=== PATIENT | male | born 1970 | race Caucasian/White ===

== ENCOUNTER → 2016-12-03 | Outpatient (CLI) | payer OTHER, BC ==
--- NOTE | 2016-12-04 09:04 | XR ---
Right ankle HISTORY: Pain 3 views of the right ankle correlated to right foot same date There is soft tissue swelling present. Cortical thickening present at the distal fibular diaphysis ma y be due to remote trauma. Small ossific densities distal to the fibula and medial malleolus are well -corticated and not felt likely to be acute. Some soft tissue calcifications present lateral to the f oot may be related to patient's gout. There is enthesophyte at the insertion of the Achilles tendon. Small plantar calcaneal spur noted. Some degenerative changes are present at the intertarsal joints. IMPRESSION: Soft tissue swelling, soft tissue calcifications as described. Additional findings above.
--- NOTE | 2016-12-04 09:06 | XR ---
Right foot HISTORY: Gout, pain 3 views of the right foot correlated to right ankle same date Soft tissue calcifications are present lateral to the foot. There is marginal spurring, overhanging e dge especially at the tarsometatarsal joint of the first digit, degenerative change also present at t he metatarsophalangeal joint of the first digit. Mild hallux valgus deformity. There is a small plant ar calcaneal spur. Some hypertrophic change present at the metatarsophalangeal joints of the second a nd third digits. Enthesophyte present at the insertion of the Achilles tendon. Small ossific density distal to the medial malleolus is well-corticated and may be due to remote trauma. IMPRESSION: Findings compatible with gout, osteoarthritis.
== END | disposition home or self-care (01) ==
LOC: RADXRYALE 09:24
PROVIDERS: ATTEND Internal Medicine
DX: M79.89 Other specified soft tissue disorders (principal)

== ENCOUNTER → 2017-09-17 | Outpatient (CLI) | payer BC ==
--- NOTE | 2017-09-17 09:02 | XR ---
EXAMINATION TYPE: XR KUB DATE OF EXAM: 09/17/2017 COMPARISON: NONE HISTORY: Bilateral renal stones and hematuria TECHNIQUE: One view abdominal series FINDINGS: The osseous structures are intact. The bowel gas pattern is nonspecific. Right kidney: There is a 9 mm irregular calcification in the region of the right UPJ or proximal uret er adjacent to the L3-L4 disc space. Also, suspect a 1 mm punctate lower pole calcification. Left kidney: Overlying the 12th rib there suspicion for 4-5 calcifications which correspond to the mi d pole of the left kidney with the largest measuring a transverse diameter of 3 mm. Pelvis: Tiny punctate calcification within the right hemipelvis likely vascular. Arthropathy of the h ips noted. IMPRESSION: 1. Bilateral nephrolithiasis as measured discussed above with the largest seen involving the proximal right ureter noted measuring 9 mm.
== END ==
LOC: RADXRMAIN 07:52
PROVIDERS: ATTEND Urology
DX: N20.2 Calculus of kidney with calculus of ureter (principal)
CPT/HCPCS: 74000

== ENCOUNTER → 2019-02-14 | Outpatient (CLI) | payer BC ==
[2019-02-14 08:25] LABS: Basophils # (A) 0.1 k/uL (0-0.2); Basophils % (A) 1 %; Eosinophils # (A) 0.2 k/uL (0-0.7); Eosinophils % (A) 3 %; HCT 43.1 % (39.0-53.0); HGB 14.9 gm/dL (13.0-17.5); Lymphocytes # (A) 1.5 k/uL (1.0-4.8); Lymphocytes % (A) 23 %; MCH 27.7 pg (25.0-35.0); MCHC 34.5 g/dL (31.0-37.0); MCV 80.2 fL (80.0-100.0); Mean Platelet Volume 6.1; Monocytes # (A) 0.5 k/uL (0-1.0); Monocytes % (A) 8 %; Neutrophils % (A) 61 %; Platelet Count 230 k/uL (150-450); RBC 5.37 m/uL (4.30-5.90); RDW 13.2 % (11.5-15.5); WBC 6.5 k/uL (3.8-10.6)
[2019-02-14 17:02] LABS: ALT 33 U/L (10-49); AST 23 U/L (14-35); Albumin/Globulin Ratio 1.68 (1.60-3.17); Alkaline Phosphatase 70 U/L (41-126); Calcium 8.9 mg/dL (8.7-10.3); Carbon Dioxide 27.2 mmol/L (21.6-31.8); Chloride 108 mmol/L (96-109); Cholesterol 197 mg/dL (0-200); Globulin 2.5 g/dL (1.6-3.3); Glucose 162 mg/dL (70-110); Sodium 140 mmol/L (135-145); Total Bilirubin 0.6 mg/dL (0.2-1.2); Total Protein 6.7 g/dL (6.2-8.2)
[2019-02-14 18:22] LABS: Hemoglobin A1C 6.7 % (4.0-6.0)
== END | disposition home or self-care (01) ==
LOC: LABWHC1 08:05
PROVIDERS: ATTEND Family Medicine
DX: Z00.00 Encounter for general adult medical examination without abnormal findings (principal)
CPT/HCPCS: 36415; 80053; 80061; 83036; 83721; 84443; 85025

== ENCOUNTER 2019-10-14 13:51 | Emergency (ER) | payer BC ==
[2019-10-14 14:01] VITALS: BP 112/70; PULSE 118; TEMP 100.2
[2019-10-14 14:17] VITALS: RESP 20
--- NOTE | 2019-10-14 14:25 | ED ---
Fever HPI - General Chief Complaint: Fever Stated Complaint: Cough Source: patient Mode of arrival: ambulatory Limitations: no limitations - History of Present Illness Initial Comments: Patient is a 49-year-old male presenting to emergency Department with chief complaint of fever and body aches. Patient reports symptoms began yesterday after he was coming back from work. 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 Patient reports a nonproductive cough, sore throat, mild bilateral otalgia and sinus congestion. Patient reports a fever at home. Patient reports taking [id number]-[id number] analgesia with some improvement. Denies taking a flu shot this year. Denies any vomiting abdominal pain, back pain chest pain or shortness of breath. - Related Data Home Medications Medication Instructions Recorded Confirmed Aspirin EC [Ecotrin] 325 mg PO DAILY PRN 01/16/16 01/16/16 Famotidine [Pepcid AC] 10 mg PO DAILY 01/16/16 01/16/16 Ibuprofen [Motrin] 800 mg PO Q6H PRN 01/16/16 01/16/16 Indomethacin [Indocin ER] 75 mg PO DAILY PRN 01/16/16 01/16/16 Previous Rx's Medication Instructions Recorded Ondansetron [Zofran ODT] 4 mg PO Q8HR PRN #9 tab 01/16/16 Oseltamivir [Tamiflu] 75 mg PO Q12HR #10 cap 10/14/19 methylPREDNISolone [Medrol Dose 4 mg PO DIRECTED #1 pack 10/14/19 Pack] Allergies Allergy/AdvReac Type Severity Reaction Status Date / Time acetaminophen Allergy Nausea & Verified 10/14/19 14:01 [From Darvocet-N] Vomiting & Diarrhea propoxyphene napsylate Allergy Nausea & Verified 10/14/19 14:01 [From Darvocet-N] Vomiting & Diarrhea Review of Systems ROS Statement: Those systems with pertinent positive or pertinent negative responses have been documented in the HPI. ROS Other: All systems not noted in ROS Statement are negative. Past Medical History Additional Past Medical History / Comment(s): kidney stones History of Any Multi-Drug Resistant Organisms: None Reported Past Surgical History: No Surgical Hx Reported, Orthopedic Surgery Additional Past Surgical History / Comment(s): lithotripsy carmen feet Past Psychological History: No Psychological Hx Reported Smoking Status: Never smoker Past Alcohol Use History: None Reported Past Drug Use History: None Reported General Exam Limitations: no limitations General appearance: alert, in no apparent distress Head exam: Present: atraumatic, normocephalic, normal inspection Eye exam: Present: normal appearance, PERRL, EOMI Pupils: Present: normal accommodation ENT exam: Present: normal exam, normal oropharynx, mucous membranes moist, TM's normal bilaterally, normal external ear exam Neck exam: Present: normal inspection, full ROM Respiratory exam: Present: normal lung sounds bilaterally. Absent: respiratory distress, wheezes Cardiovascular Exam: Present: normal rhythm, tachycardia, normal heart sounds Extremities exam: Present: normal inspection, full ROM Back exam: Present: normal inspection, full ROM Neurological exam: Present: alert, oriented X3 Psychiatric exam: Present: normal affect, normal mood Skin exam: Present: warm, dry, intact, normal color Course Vital Signs 10/14/19 10/14/19 13:57 14:12 Temperature 100.2 F H Pulse Rate 118 H Respiratory 18 20 Rate Blood Pressure 112/70 O2 Sat by Pulse 94 L Oximetry Medical Decision Making - Medical Decision Making Patient is a 49-year-old male presenting to emergency Department with a chief complaint of flulike symptoms. On exam patient does have clear bilateral rhinorrhea. Rest of physical examination is unremarkable. Patient was exposed to people with flulike symptoms at work. No flu vaccination. Patient is testing positive for influenza a. Patient given Tamiflu and a Medrol Dosepak. Patient advised to drink lots of fluids and rest. Strict return parameters were thoroughly discussed with patient was understanding and agreeable. Case dis cussed with physician. - Lab Data Lab Results 10/14/19 Range/Units 14:20 Influenza Type A RNA Detected H (Not Detectd) Influenza Type B (PCR) Not Detected (Not Detectd) Disposition Clinical Impression: Influenza Disposition: HOME SELF-CARE Condition: Stable Additional Instructions: Please rest. Take prescribed medication as directed. Drink lots of liquids. Please return to emergency department if symptoms worsen. Prescriptions: methylPREDNISolone [Medrol Dose Pack] 4 mg PO DIRECTED #1 pack Oseltamivir [Tamiflu] 75 mg PO Q12HR #10 cap Is patient prescribed a controlled substance at d/c from ED?: No Referrals: Prakash Redman MD [Primary Care Provider] - 1-2 days Time of Disposition: 15:56
== END 2019-10-14 16:07 | disposition home or self-care (01) ==
LOC: EC 13:51
DX: J10.1 Influenza due to other identified influenza virus with other respiratory manifestations (principal); Z79.899 Other long term (current) drug therapy; Z88.6 Allergy status to analgesic agent; Z88.5 Allergy status to narcotic agent
CPT/HCPCS: 87502; 99283

== ENCOUNTER 2023-01-17 07:16 | Day surgery (SDC) | payer BC ==
[2023-01-15 12:12] VITALS: BMI 28.8
[~2023-01-17 07:16] MED LIST: LACTATED RINGERS 1,000 ML IV SCH; LIDOCAINE 1% (10MG/ML) FOR IV START INTRADERMA PRN
[2023-01-17 07:54] VITALS: TEMP 97.1
[2023-01-17 07:59] LABS: Glucose,Whole Blood 131 mg/dL (70-110)
[2023-01-17] MEDS ORDERED: PROPOFOL 10 MG/ML 20 ML VIAL IV ONE (08:04)
--- NOTE | 2023-01-17 08:06 | P.GSHP ---
History of Present Illness H&P Date: 01/17/23 Chief Complaint: Screening colonoscopy, positive colon guard test Is a 52 male who presents today for screening colonoscopy. Patient denies a significant GI complaints. He's never had a colonoscopy before. He's had a recent positive colon guard test Past Medical History Past Medical History: Diabetes Mellitus, Hyperlipidemia Additional Past Medical History / Comment(s): kidney stones, LOOSE STOOLS, GOUT History of Any Multi-Drug Resistant Organisms: None Reported Past Surgical History: Orthopedic Surgery Additional Past Surgical History / Comment(s): lithotripsy, carmen - FOOT SURGERY Past Anesthesia/Blood Transfusion Reactions: No Reported Reaction Smoking Status: Never smoker - Past Family History Mother Family Medical History: Cancer Additional Family Medical History / Comment(s): SKIN CANCER Medications and Allergies Home Medications Medication Instructions Recorded Confirmed Type Ibuprofen [Motrin] 800 mg PO Q6H PRN 01/16/16 01/17/23 History Indomethacin [Indocin ER] 75 mg PO DAILY PRN 01/16/16 01/17/23 History Semaglutide [Rybelsus] 7 mg PO DAILY 11/15/20 01/17/23 History Allergies Allergy/AdvReac Type Severity Reaction Status Date / Time propoxyphene napsylate Allergy Nausea & Verified 11/15/20 15:10 [From Darvocet-N] Vomiting & Diarrhea Surgical - Exam Vital Signs Temp Pulse Resp BP Pulse Ox 97.1 F L 78 15 145/90 98 01/17/23 07:53 01/17/23 07:53 01/17/23 07:53 01/17/23 07:53 01/17/23 07:53 - General well developed, well nourished, no distress - Eyes PERRL - ENT normal pinna - Neck no masses - Respiratory normal expansion - Cardiovascular Rhythm: regular - Abdomen Abdomen: soft, non tender Results - Labs Abnormal Lab Results - Last 24 Hours (Table) 01/17/23 Range/Units 07:48 POC Glucose (mg/dL) 131 H (70-110) mg/dL Assessment and Plan Assessment: Positive colon guard test. We'll perform screening colonoscopy.
--- NOTE | 2023-01-17 08:16 | P.OP ---
Date of Procedure: 01/17/23 Preoperative Diagnosis: Screening colonoscopy Postoperative Diagnosis: Mild diverticulosis Procedure(s) Performed: Colonoscopy Anesthesia: MAC Surgeon: Sanchez Zimmerman Pathology: none sent Condition: stable Disposition: PACU Description of Procedure: Patient's placed on the endoscopy table in the lateral position. Sealed IV sedation. Digital rectal exam was performed. This revealed no abnormalities. The flexible colonoscope was then placed patient anus and passed throughout the entire colon. The ileocecal valve was visualized. The cecum, ascending and transverse colon appeared normal. In the descending and sigmoid was mild diverticular changes. Scope was then brought back the rectum and this appeared normal. Scope withdrawn for patient.
[2023-01-17 08:25] VITALS: RESP 16
[2023-01-17 08:41] VITALS: BP 135/94; PULSE 62
== END 2023-01-17 09:22 | disposition home or self-care (01) ==
LOC: ORWHC2ENDO 07:16
PROVIDERS: ATTEND Surgery
DX: K57.30 Diverticulosis of large intestine without perforation or abscess without bleeding (principal); E11.9 Type 2 diabetes mellitus without complications; Z79.84 Long term (current) use of oral hypoglycemic drugs; E78.5 Hyperlipidemia, unspecified; Z87.442 Personal history of urinary calculi; M10.9 Gout, unspecified; Z98.890 Other specified postprocedural states; Z80.8 Family history of malignant neoplasm of other organs or systems; Z79.1 Long term (current) use of non-steroidal anti-inflammatories (NSAID); Z79.899 Other long term (current) drug therapy; Z88.5 Allergy status to narcotic agent; Z88.6 Allergy status to analgesic agent
CPT/HCPCS: 45378; J2704

== ENCOUNTER → 2024-04-21 | Outpatient (CLI) | payer BC ==
--- NOTE | 2024-04-21 08:37 | XR ---
EXAMINATION TYPE: XR KUB DATE OF EXAM: 04/21/2024 COMPARISON: 09/27/2017 HISTORY: Pain TECHNIQUE: One view abdominal series FINDINGS: The osseous structures are intact. Degenerative changes of the spine. Additional calcifications in pe lvis are seen one of which could potentially represent a bladder calculus. Others are nonspecific and too small to characterize but favored to be vascular. The bowel gas pattern is nonspecific. Lung ba ses are clear. Right kidney: There are 2 calcifications overlying the right kidney the largest measures 1.4 cm. Left kidney: There are approximately 4 calcifications overlying the left kidney the largest measures 1.2 cm. IMPRESSION: 1. Bilateral nephrolithiasis increased from prior exam. 2. Possible bladder calculus measuring 1 cm.
== END | disposition home or self-care (01) ==
LOC: RADXRMAIN 08:10
PROVIDERS: ATTEND Urology
DX: N20.0 Calculus of kidney (principal)
CPT/HCPCS: 74018

== ENCOUNTER → 2024-05-01 | Outpatient (CLI) | payer BC ==
--- NOTE | 2024-05-03 10:04 | US ---
EXAMINATION TYPE: US kidneys/renal and bladder DATE OF EXAM: 05/01/2024 COMPARISON: NONE CLINICAL INDICATION: Male, 53 years old with history of N20.0 RENAL STONES; renal stones EXAM MEASUREMENTS: Right Kidney: 12.9 x 4.6 x 5.5 cm Left Kidney: 11.8 x 5.1 x 6.2 cm Right Kidney: echogenic focus seen mid pole measuring 0.9cm Left Kidney: Echogenic focus seen mid pole measuring 1.4cm Bladder: Echogenic focus seen near left UVJ . Measuring 1.8cm Bilateral Jets seen: Yes There is no evidence for hydronephrosis at this point in time. No masses are identified. The urinar y bladder is anechoic. Bilateral ureteral jets are seen. IMPRESSION: Bilateral nephrolithiasis as well as probable left UVJ calculus. No elizabeth hydronephrosis at this time .
== END | disposition home or self-care (01) ==
LOC: RADUSWWP 15:45
PROVIDERS: ATTEND Family Medicine
DX: N20.0 Calculus of kidney (principal)
CPT/HCPCS: 76770

== ENCOUNTER 2024-06-04 13:00 | Day surgery (SDC) | payer BC ==
[~2024-06-04 13:00] MED LIST changes: +DEXAMETHASONE SOD PHOSPHATE 4 MG/ML 1 ML VIAL ONE; -LACTATED RINGERS 1,000 ML IV SCH; -LIDOCAINE 1% (10MG/ML) FOR IV START INTRADERMA PRN; +ONDANSETRON 4 MG/2 ML VIAL ONE
[2024-06-04] MEDS ORDERED: KETOROLAC 15 MG/ML 1 ML VIAL ONE (14:21)
[2024-06-04] MEDS ORDERED: ePHEDrine 50 MG/ML 1 ML VIAL ONE (14:21)
[2024-06-04] MEDS ORDERED: NEOSTIGMINE 1 MG/ML 10 ML VIAL ONE (14:21)
[2024-06-04] MEDS ORDERED: MIDAZOLAM 2 MG/2 ML VIAL ONE (14:21)
[2024-06-04] MEDS ORDERED: PROPOFOL 10 MG/ML 20 ML VIAL IV ONE (14:21)
[2024-06-04] MEDS ORDERED: ROCURONIUM 10 MG/ML (5 ML VIAL) IV ONE (14:21)
[2024-06-04] MEDS ORDERED: fentaNYL (PF) 50 MCG/ML 2 ML AMP ONE (14:21)
[2024-06-04] MEDS ORDERED: GLYCOPYRROLATE 0.2 MG/ML 2 ML VIAL ONE (14:21)
[2024-06-04] MEDS ORDERED: SUCCINYLCHOLINE CHLORIDE 200 MG/10 ML VIAL IV ONE (14:21)
[2024-06-04] MEDS ORDERED: LIDOCAINE 1% INJ 10MG/ML (20 ML MDV) ONE (14:21)
[2024-06-04] MEDS ORDERED: WATER FOR INJECTION, STERILE 10 ML VIAL IV ONE (14:21)
[2024-06-04] MEDS ORDERED: SODIUM CHLORIDE 0.9% 50 ML BAG IV ONE (14:26)
[2024-06-04] MEDS ORDERED: ceFAZolin 10 GM VIAL IVPB ONE (14:26)
[2024-06-04] MEDS ORDERED: LACTATED RINGERS 1,000 ML BAG ONE (14:26)
[2024-06-04] MEDS ORDERED: ONDANSETRON 4 MG/2 ML VIAL ONE (17:55)
[2024-06-04] MEDS ORDERED: INSULIN ASPART (NovoLOG) 100 UNIT/ML VIAL SQ ONE (19:20)
[2024-06-04] MEDS ORDERED: TAMSULOSIN 0.4 MG CAP.ER.24H PO ONE (19:25)
--- NOTE | 2024-06-12 15:52 | HP ---
HISTORY AND PHYSICAL DATE OF OUTPATIENT SURGERY: June 04, 2024 CHIEF COMPLAINT: Flank and abdominal pain. HISTORY OF PRESENT ILLNESS: The patient is a 53-year-old white male with a history of urolithiasis. He has previously undergone ESWL. Recent KUB x-ray shows 2 right renal calculi measuring up to 14 mm, 4 left renal calculi measuring up to 12 mm, and a probable 1 cm bladder calculus. Renal ultrasound shows a 1.8 cm calculus within the bladder or the left UVJ. There is no hydronephrosis. PAST MEDICAL HISTORY: Gout, type 2 diabetes mellitus, recurrent kidney stones. MEDICATIONS: 1. Tamsulosin 0.4 mg daily. 2. Indomethacin 50 mg. ALLERGIES: None. PAST SURGICAL HISTORY: Foot fracture, ESWL. FAMILY HISTORY: Negative for urolithiasis. SOCIAL HISTORY: The patient is . He denies tobacco and alcohol use. 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 REVIEW OF SYSTEMS: CONSTITUTIONAL: Denies fever and chills. GASTROINTESTINAL: Denies nausea and vomiting. GENITOURINARY: Denies hematuria. Admits to urinary frequency. PHYSICAL EXAMINATION: GENERAL: The patient is a well-developed, well-nourished, cooperative white male in no apparent distress. VITAL SIGNS: Blood pressure 140/77, respirations 12. CHEST: Normal respiratory effort. ABDOMEN: Soft, nontender. GENITOURINARY: Normal phallus. Normal testes. RECTAL: Normal anal sphincter tone. No rectal masses. The prostate is palpably normal. IMPRESSION: 1. Bladder or left distal ureteral calculus. 2. Bilateral renal calculi. PLAN: The patient desires endoscopic removal of his calculi. Due to the computer outage, I am unable to review the patient's imaging. A preoperative KUB x-ray will be obtained. If on the basis of that x-ray and cystoscopy, the pelvic calculus is determined to be a bladder calculus, cystolithotripsy will be performed. Subsequently, right ureteroscopy with laser lithotripsy will be performed to remove the right renal calculi as the stone burden on the right appears to be less than on the left. Conversely, if the pelvic calculus is within the left distal ureter, he will undergo left ureteroscopy with laser lithotripsy and stone basketing, and as many of the left renal calculi will be removed as possible. This has been reviewed in detail with the patient and his . They have been made aware of potential risks which include anesthesia, bleeding, infection, postoperative urinary retention, inability to remove the calculi, and ureteral injury. MMAJYCE / IJN: [id number] / MTDD
--- NOTE | 2024-07-06 09:46 | OP ---
OPERATIVE REPORT DATE OF SERVICE : 06/04/2024 PREOPERATIVE DIAGNOSES: 1. Left ureteral calculus. 2. Bilateral renal calculi. POSTOPERATIVE DIAGNOSES: 1. Left ureteral calculus. 2. Bilateral renal calculi. PROCEDURES: Cystoscopy, bilateral ureteroscopy with Holmium laser lithotripsy, stone basketing, bilateral ureteral stent insertion. ANESTHESIA: General. ESTIMATED BLOOD LOSS: 20 mL. FLUIDS GIVEN: 1200 mL crystalloid. COMPLICATIONS: None. SPECIMEN REMOVED: Renal and left ureteral calculi. OPERATIVE FINDINGS: 1. 8 to 10 mm left distal ureteral calculus. 2. Bilateral renal calculi. INDICATIONS: The patient is a 53-year-old white male with a history of urolithiasis. He recently presented with pain and was found to have a probable left UVJ calculus as well as bilateral renal calculi. DESCRIPTION OF PROCEDURE: The patient was taken to the operating room and placed in the dorsal lithotomy position with his legs supported in Lucas stirrups. The external genitalia were prepped and draped sterilely. 30 degree lens was used to introduce the 21-Bahamian Storz cystoscopic sheath through the urethra and into the bladder under direct vision. The anterior urethra appeared normal. The prostatic urethra showed evidence of mild bilobar enlargement. The bladder was examined in its entirety. The ureteral orifices appeared normal. A calculus was seen at the left ureterovesical junction. No tumors or foreign bodies were seen within the bladder. Cystoscope was removed and the Pascual semi-rigid ureteroscope was advanced into the bladder. The left ureteral orifice was cannulated, the ureteroscope was advanced into the ureter. The 270 micron Holmium laser probe was passed through the uteroscope, and lithotripsy was performed. The calculus fragmented and calculus fragments passed distally into the bladder. There was no evidence of ureteral trauma. Once the ureteral calculus had been removed, the uteroscope was advanced up to the mid ureter. A 0.035 inch Glidewire was passed through the uteroscope and up to the left renal pelvis. The uteroscope was removed and 11/13 Bahamian ureteral access catheter was passed over the wire up to the proximal ureter. The [employer] flexible uteroscope was passed through the ureteral access catheter sheath and advanced under direct vision, up to the left renal pelvis. Each calyx was examined. A mid pole calculus was identified, measuring approximately 3 mm in size. A 1.9 Bahamian zero-tip Nitinol basket was used to grasp the calculus and remove it along with the uteroscope. The uteroscope was again passed up to the left renal pelvis, and the large left renal calculus measuring approximately 12 mm was identified within a lower pole calyx. The basket was used to grasp the calculus and reposition it into the renal pelvis, where lithotripsy was performed. After fragmenting the calculus, all calculus fragments were removed using the Nitinol basket. Pullout ureteroscopy showed no evidence of ureteral trauma. The Glidewire was passed up to the left renal pelvis and backloaded into the cystoscope, which was passed into the bladder. A 26 cm, 4.8 Bahamian double-J ureteral stent was placed over the wire. Proper stent positioning was verified fluoroscopically and endoscopically. The Glidewire was then passed through the cystoscope. The right ureteral orifice was cannulated and the Glidewire was advanced up to the right renal pelvis. The 11/13 Bahamian ureteral access catheter was passed over the wire, up to the proximal ureter. The flexible ureteroscope was advanced up to the right renal pelvis, which was examined. The large right renal calculus, measuring approximately 14 mm, was readily seen within the renal pelvis. This was fragmented using a dusting mode. Once this was completed, sizable fragments were removed using the Nitinol basket. All that remained was debris measuring less than 1 mm in size. Attention was then paid to an upper pole calyx, where a 3 mm calculus was identified and removed via stone basketing. Fluoroscopy showed a calcification over the right upper pole of the kidney, but an additional calculus could not be identified. After I was confident that all calculi had been removed, the ureteroscope was slowly withdrawn, revealing no evidence of ureteral trauma. The Glidewire was passed through the uteroscope, then backloaded into the cystoscope, which was passed into the bladder. A 26 cm, 4.8 Bahamian double-J ureteral stent was placed over the wire. Proper stent positioning was verified fluoroscopically and endoscopically. The bladder was emptied and the cystoscope removed. The patient tolerated the procedure well and was taken to the recovery room in stable condition. MMODL / IJN: [id number] / [facility]OSPITALMilind
--- NOTE | 2024-07-06 12:55 | XR ---
Site ID [facility] Patient Palmer Paul, F ID [id number] Age/Gender: 53Y, M Order # N/A Procedure XR KUB Date 06/04/2024 11:55:00 AM EXAMINATION TYPE: XR KUB DATE OF EXAM: 06/12/2024 COMPARISON: NONE HISTORY: Preprocedural bilateral kidney stones TECHNIQUE: Single supine KUB image of the abdomen is obtained FINDINGS: Small bowel demonstrates no evidence for dilatation or air fluid levels. Gas and fecal material is seen in non-distended colon. Right renal 6 mm calculus with a 1.3 cm calculus located inferiorly. 2 adjacent left renal calculi measuring 1.2 and 0.4 cm. 0.2 mm calculus within the right pelvis which may represent a phlebolith versus distal ureteral calcu marlon. 1 cm calculus overlying the midline pelvis which may represent a bladder calculus. The osseous structures are intact. IMPRESSION: Bilateral renal calculi with possible urinary bladder calculus.
--- NOTE | 2024-07-23 10:36 | FL ---
EXAMINATION TYPE: FL guidance operating room DATE OF EXAM: 06/30/2024 8:30 AM COMPARISON: Pre Operative Images if available both CT/MRI or plain film CLINICAL INDICATION: Male, 53 years old with history of RIGHT AND LEFT RENAL CALCULI; TECHNIQUE: FL guidance operating room, multiple fluoroscopic images provided for procedure. Total fluoroscopy time: 38 seconds Total submitted images to PACS: 2 DAP: 3.42 mGym2 Gycm2 uGym2 cGycm2 or equivalent. FINDINGS: Multiple intraoperative fluoroscopic images were taken resulting in ureteral stent placement with sup erior pigtail in appropriate position projecting over the renal pelvis. No immediate intraoperative c omplication. Multilevel degeneration changes throughout the spine. IMPRESSION: 1. No evidence for intraoperative complication. 2. Please see the operative/procedural note for further details. [facility], , 07/23/2024 10:33 AM
== END 2024-06-04 20:10 ==
LOC: OR 13:00
PROVIDERS: ATTEND Urology
DX: N20.2 Calculus of kidney with calculus of ureter (principal); E11.9 Type 2 diabetes mellitus without complications; M10.9 Gout, unspecified; Z79.899 Other long term (current) drug therapy
CPT/HCPCS: 74018; 82365

== ENCOUNTER → 2024-06-04 | Outpatient (CLI) | payer BC | END | disposition home or self-care (01) | LOC: LABPRL 14:55 | PROVIDERS: ATTEND Urology | DX: N20.0 Calculus of kidney (principal) | CPT/HCPCS: 82365 ==

== ENCOUNTER → 2024-08-05 | Outpatient (CLI) | payer BC ==
--- NOTE | 2024-08-05 17:22 | US ---
EXAMINATION TYPE: US kidneys/renal and bladder DATE OF EXAM: 08/05/2024 COMPARISON: Renal ultrasound 05/01/2024 CLINICAL INDICATION: Male, 53 years old with history of N20.0 CALCULUS OF KIDNEY LEFT AND RIGHT; Hx r enal stones with surgical intervention x 4/6 weeks ago TECHNIQUE: Grayscale and color Doppler imaging of the bilateral kidneys and urinary bladder: FINDINGS: EXAM MEASUREMENTS: Right Kidney: 11.8 x 5.6 x 5.8 cm Left Kidney: 11.3 x 5.2 x 5.7 cm Right Kidney: Renal cortex appears lobular. Prominent column of Yousif. Left Kidney: Renal cortex appears lobular. Prominent dromedary hump. Bladder: Distended, anechoic *Left jet seen There is no evidence for hydronephrosis at this point in time. No shadowing renal calculi identified . No masses are identified. The urinary bladder is anechoic. Left ureteral jet identified. IMPRESSION: 1. No hydronephrosis. 2. No shadowing renal calculi identified. [facility], , 08/05/2024 5:19 PM
--- NOTE | 2024-08-05 17:37 | XR ---
EXAMINATION TYPE: XR KUB DATE OF EXAM: 08/05/2024 4:38 PM CLINICAL INDICATION: Male, 53 years old with history of KIDNEY STONES; COMPARISON: 06/04/2024 TECHNIQUE: One radiographic view of the abdomen was obtained. FINDINGS: The bowel gas pattern is nonspecific without dilated loops of small or large bowel. . Fecal material and gas are demonstrated throughout the colon and rectum. There is no evidence for organomegaly or pneumoperitoneum. The osseous structures are intact. No ab normal calcifications are present. IMPRESSION: Nonspecific bowel gas pattern without radiographic evidence for acute process. [facility], , 08/05/2024 5:35 PM
== END | disposition home or self-care (01) ==
LOC: RADUSWWP 15:46
PROVIDERS: ATTEND Urology
CPT/HCPCS: 74018; 76770

== ENCOUNTER 2024-12-17 19:14 | Observation (INO) | payer BC ==
--- NOTE | 2024-12-17 19:38 | ED ---
Dizziness HPI - General Source: RN notes reviewed <Lorraine Haas - Last Filed: 12/17/24 19:36> - General Source: patient, RN notes reviewed Mode of arrival: ambulatory Limitations: no limitations - History of Present Illness MD Complaint: dizziness Timing: awoke with symptoms History of Same: No History of Trauma: No Improves With: nothing Worsens With: nothing Associated Symptoms: chest pain, shortness of breath <Hawk Benavidez - Last Filed: 12/18/24 02:58> - General Stated Complaint: dizzy sob Time Seen by Provider: 12/17/24 19:36 - History of Present Illness Initial Comments: Quick [id number] male with history of type 2 diabetes presenting for shortness of breath. 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 States when he woke up he felt short of breath, dizzy, and felt as though "his whole body was burning up". Denies chest pain. Denies blood thinners. States his diabetes is managed with pills and diet. (Lorraine Haas) This is a 54-year-old male with history of DM2 and SYBIL presenting with chest pain since 1800 this evening. Patient states he awoke from a nap, stating he was making a tension/pulsating type chest pain with associated dizziness, SOB and weakness. Patient endorses recent increased life stressors following meeting today with a special agent [employer] regarding an impending of a close family member. Denies AMS, ALOC, pallor, diaphoresis, cough, hemoptysis, radiating pa in. (Hawk Benavidez) - Related Data Home Medications Medication Instructions Recorded Confirmed Ibuprofen [Motrin] 800 mg PO Q6H PRN 01/16/16 01/17/23 Indomethacin [Indocin ER] 75 mg PO DAILY PRN 01/16/16 01/17/23 Semaglutide [Rybelsus] 7 mg PO DAILY 11/15/20 01/17/23 Allergies Allergy/AdvReac Type Severity Reaction Status Date / Time propoxyphene napsylate Allergy Nausea & Verified 12/17/24 21:23 [From Darvocet-N] Vomiting & Diarrhea Review of Systems ROS Other: All systems not noted in ROS Statement are negative. <Lorraine Haas - Last Filed: 12/17/24 19:36> ROS Other: All systems not noted in ROS Statement are negative. <Hawk Benavidez - Last Filed: 12/18/24 02:58> ROS Statement: Those systems with pertinent positive or pertinent negative responses have been documented in the HPI. Past Medical History Past Medical History: Diabetes Mellitus, Hyperlipidemia Additional Past Medical History / Comment(s): kidney stones, LOOSE STOOLS, GOUT History of Any Multi-Drug Resistant Organisms: None Reported Past Surgical History: Orthopedic Surgery Additional Past Surgical History / Comment(s): lithotripsy, carmen - FOOT SURGERY Past Anesthesia/Blood Transfusion Reactions: No Reported Reaction Smoking Status: Never smoker - Past Family History Mother Family Medical History: Cancer Additional Family Medical History / Comment(s): SKIN CANCER <Lorraine Haas - Last Filed: 12/17/24 19:36> General Exam <Lorraine Haas - Last Filed: 12/17/24 19:36> General appearance: alert, in no apparent distress Head exam: Present: atraumatic, normocephalic, normal inspection Eye exam: Present: normal appearance, PERRL, EOMI. Absent: scleral icterus, conjunctival injection, periorbital swelling ENT exam: Present: normal exam, mucous membranes moist Neck exam: Present: normal inspection. Absent: tenderness, meningismus, lymphadenopathy Respiratory exam: Present: normal lung sounds bilaterally. Absent: respiratory distress, wheezes, rales, rhonchi, stridor Cardiovascular Exam: Present: regular rate, normal rhythm, normal heart sounds. Absent: systolic murmur, diastolic murmur, rubs, gallop, clicks GI/Abdominal exam: Present: soft, normal bowel sounds. Absent: distended, tenderness, guarding, rebound, rigid Extremities exam: Present: normal inspection, full ROM, normal capillary refill, other (Bilateral posterior tibialis pulse +2). Absent: tenderness, pedal edema, joint swelling, calf tenderness Back exam: Present: normal inspection Neurological exam: Present: alert, oriented X3, CN II-XII intact Psychiatric exam: Present: normal affect, normal mood Skin exam: Present: warm, dry, intact, normal color. Absent: rash <Hawk Benavidez - Last Filed: 12/18/24 02:58> - General Exam Comments Initial Comments: Visual Physical Exam General: Well-appearing, nontoxic, no acute distress. Head: Normocephalic, atraumatic Eyes: PERRLA, EOMI ENT: Airway patent Chest: Nonlabored breathing Skin: No visual rash, normal skin tone Neuro: Alert and oriented 3 Musculoskeletal: No gross abnormalities (Lorraine Haas) Course Vital Signs 12/17/24 12/18/24 12/18/24 21:07 00:54 02:13 Temperature 97.5 F L Pulse Rate 109 H 71 71 Respiratory 20 18 17 Rate Blood Pressure 162/109 141/96 142/94 O2 Sat by Pulse 97 95 95 Oximetry Medical Decision Making <Lorraine Haas - Last Filed: 12/17/24 19:36> - Lab Data Result diagrams: 12/17/24 21:49 12/17/24 21:49 <Hawk Benavidez - Last Filed: 12/18/24 02:58> - Medical Decision Making I completed the quick note portion of this chart signed Lorraine Haas PA-C (Lorraine Haas) Was pt. sent in by a medical professional or institution (JESSI Hou, TRANSFER SPECIALIST, urgent care, hospital, or group home...) When possible be specific @ -No Did you speak to anyone other than the patient for history (EMS, parent, family, police, friend...)? What history was obtained from this source @ -No Did you review nursing and triage notes (agree or disagree)? Why? @ -I reviewed and agree with nursing and triage notes Were old charts reviewed (outside hosp., previous admission, EMS record, old EKG, old radiological studies, urgent care reports/EKG's, group home records)? Report findings @ -No old charts were reviewed Differential Diagnosis (chest pain, altered mental status, abdominal pain women, abdominal pain men, vaginal bleeding, weakness, fever, dyspnea, syncope, headache, dizziness, GI bleed, back pain, seizure, CVA, palpatations, mental health, musculoskeletal)? @ -Differential Chest Pain: Stable Angina, Unstable Angina, STEMI, NSTEMI Aortic Dissection, Pneumothorax, Musculoskeletal, Esophageal Spasm GERD, Cholecystitis, Pancreatitis, Zoster, this is not meant to be an all-inclusive list. EKG interpreted by me (3pts min.). @ -Sinus rhythm without ST deviation or T wave inversion. Ventricular rate 94 bpm, SINDY 183 ms, QRS duration 89 ms, QTc 387 ms. X-rays interpreted by me (1pt min.). @ -CXR shows no acute cardiopulmonary process CT interpreted by me (1pt min.). @ -None done U/S interpreted by me (1pt. min.). @ -None done What testing was considered but not performed or refused? (CT, X-rays, U/S, labs)? Why? @ -None What meds were considered but not given or refused? Why? @ -None Did you discuss the management of the patient with other professionals (professionals i.e. DrAdrian, PA, TRANSFER SPECIALIST, lab, RT, psych nurse, social work case manager, special agent [employer], teacher, occupational health and safety officer, gearcase assembler)? Give summary @ -Spoke to Dr. Redman who agreed patient admission to observation. Was smoking cessation discussed for >3mins.? @ -No Was critical care preformed (if so, how long)? @ -No Were there social determinants of health that impacted care today? How? (Homele ssness, low income, unemployed, alcoholism, drug addiction, transportation, low edu. Level, literacy, decrease access to med. care, residential, rehab)? @ -No Was there de-escalation of care discussed even if they declined (Discuss DNR or withdrawal of care, Hospice)? DNR status @ -No What co-morbidities impacted this encounter? (DM, HTN, Smoking, COPD, CAD, Cancer, CVA, ARF, Chemo, Hep., AIDS, mental health diagnosis, sleep apnea, morbid obesity)? @ -None Was patient admitted / discharged? Hospital course, mention meds given and route, prescriptions, significant lab abnormalities, going to OR and other pertinent info. @ -Lab work shows hyperglycemia 256, but otherwise unremarkable including negative troponin and Cepheid test. CXR shows no acute cardiopulmonary process. Heart score-3. Patient provided p.o. chewable aspirin and spoke to Dr. Redman for patient admission to observation. Discussed patient with Dr. Pagan. Undiagnosed new problem with uncertain prognosis? @ -No Drug Therapy requiring intensive monitoring for toxicity (Heparin, Nitro, Insulin, Cardizem)? @ -No Were any procedures done? @ -No Diagnosis/symptom? @ -Chest pain Acute, or Chronic, or Acute on Chronic? @ -Acute Uncomplicated (without systemic symptoms) or Complicated (systemic symptoms)? @ -Complicated Side effects of treatment? @ -No Exacerbation, Progression, or Severe Exacerbation? @ -No Poses a threat to life or bodily function? How? (Chest pain, [place], HI, pneumonia, PE, COPD, DKA, ARF, appy, cholecystitis, CVA, Diverticulitis, Homicidal, Suicidal, threat to staff... and all critical care pts) @ -No (Hawk Benavidez) - Lab Data Lab Results 12/17/24 12/17/24 12/17/24 Range/Units 21:20 21:49 21:49 WBC 7.9 (3.8-10.6) k/uL RBC 5.22 (4.30-5.90) m/uL Hgb 14.7 (13.0-17.5) gm/dL Hct 42.6 (39.0-53.0) % MCV 81.7 (80.0-100.0) fL MCH 28.3 (25.0-35.0) pg MCHC 34.6 (31.0-37.0) g/dL RDW 13.2 (11.5-15.5) % Plt Count 206 (150-450) k/uL MPV 6.4 Neutrophils % 67 % Lymphocytes % 20 % Monocytes % 8 % Eosinophils % 3 % Basophils % 1 % Neutrophils # 5.3 (1.3-7.7) k/uL Lymphocytes # 1.6 (1.0-4.8) k/uL Monocytes # 0.6 (0-1.0) k/uL Eosinophils # 0.2 (0-0.7) k/uL Basophils # 0.1 (0-0.2) k/uL PT 10.0 (10.0-12.5) sec INR 0.9 (<1.2) APTT 21.8 L (22.0-30.0) sec Sodium (137-145) mmol/L Potassium (3.5-5.1) mmol/L Chloride (98-107) mmol/L Carbon Dioxide (22-30) mmol/L Anion Gap mmol/L BUN (9-20) mg/dL Creatinine (0.66-1.25) mg/dL Est GFR (CKD-EPI)AfAm (>60 ml/min/1.73 sqM) Est GFR (CKD-EPI)NonAf (>60 ml/min/1.73 sqM) Glucose (74-99) mg/dL Calcium (8.4-10.2) mg/dL Magnesium (1.6-2.3) mg/dL Total Bilirubin (0.2-1.3) mg/dL AST (17-59) U/L ALT (4-49) U/L Alkaline Phosphatase (38-126) U/L Troponin I (0.000-0.034) ng/mL Total Protein (6.3-8.2) g/dL Albumin (3.5-5.0) g/dL Influenza Type A (PCR) Not Detected (Not Detectd) Influenza Type B (PCR) Not Detected (Not Detectd) RSV (PCR) Not Detected (Not Detectd) SARS-CoV-2 (PCR) Not Detected (Not Detectd) 12/17/24 12/17/24 Range/Units 21:49 21:49 WBC (3.8-10.6) k/uL RBC (4.30-5.90) m/uL Hgb (13.0-17.5) gm/dL Hct (39.0-53.0) % MCV (80.0-100.0) fL MCH (25.0-35.0) pg MCHC (31.0-37.0) g/dL RDW (11.5-15.5) % Plt Count (150-450) k/uL MPV Neutrophils % % Lymphocytes % % Monocytes % % Eosinophils % % Basophils % % Neutrophils # (1.3-7.7) k/uL Lymphocytes # (1.0-4.8) k/uL Monocytes # (0-1.0) k/uL Eosinophils # (0-0.7) k/uL Basophils # (0-0.2) k/uL PT (10.0-12.5) sec INR (<1.2) APTT (22.0-30.0) sec Sodium 138 (137-145) mmol/L Potassium 4.1 (3.5-5.1) mmol/L Chloride 104 (98-107) mmol/L Carbon Dioxide 22 (22-30) mmol/L Anion Gap 12 mmol/L BUN 19 (9-20) mg/dL Creatinine 0.98 (0.66-1.25) mg/dL Est GFR (CKD-EPI)AfAm >90 (>60 ml/min/1.73 sqM) Est GFR (CKD-EPI)NonAf 87 (>60 ml/min/1.73 sqM) Glucose 256 H (74-99) mg/dL Calcium 9.1 (8.4-10.2) mg/dL Magnesium 1.9 (1.6-2.3) mg/dL Total Bilirubin 0.7 (0.2-1.3) mg/dL AST 21 (17-59) U/L ALT 27 (4-49) U/L Alkaline Phosphatase 61 (38-126) U/L Troponin I <0.012 (0.000-0.034) ng/mL Total Protein 7.5 (6.3-8.2) g/dL Albumin 4.5 (3.5-5.0) g/dL Influenza Type A (PCR) (Not Detectd) Influenza Type B (PCR) (Not Detectd) RSV (PCR) (Not Detectd) SARS-CoV-2 (PCR) (Not Detectd) Disposition <Lorraine Haas - Last Filed: 12/17/24 19:36> Is patient prescribed a controlled substance at d/c from ED?: No Time of Disposition: 00:19 Decision Date: 12/18/24 Decision Time: 00:19 <Hawk Benavidez - Last Filed: 12/18/24 02:58> Clinical Impression: Chest pain Disposition: ADMITTED IP TO THIS HOSP Condition: Good
--- NOTE | 2024-12-17 21:31 | XR ---
EXAMINATION TYPE: XR chest 2V DATE OF EXAM: 12/17/2024 8:50 PM COMPARISON: None. CLINICAL INDICATION: Male, 54 years old with history of shortness of breath, TECHNIQUE: XR chest 2V view(s) obtained. FINDINGS: The heart size is normal. The pulmonary vasculature is normal. The lungs are clear. IMPRESSION: 1. No acute pulmonary process. [facility], , 12/17/2024 9:29 PM
[2024-12-17 21:55] LABS: Basophils # (A) 0.1 k/uL (0-0.2); Basophils % (A) 1 %; Eosinophils # (A) 0.2 k/uL (0-0.7); Eosinophils % (A) 3 %; HCT 42.6 % (39.0-53.0); HGB 14.7 gm/dL (13.0-17.5); Lymphocytes # (A) 1.6 k/uL (1.0-4.8); Lymphocytes % (A) 20 %; MCH 28.3 pg (25.0-35.0); MCHC 34.6 g/dL (31.0-37.0); MCV 81.7 fL (80.0-100.0); Mean Platelet Volume 6.4; Monocytes # (A) 0.6 k/uL (0-1.0); Monocytes % (A) 8 %; Neutrophils # (A) 5.3 k/uL (1.3-7.7); Neutrophils % (A) 67 %; Platelet Count 206 k/uL (150-450); RBC 5.22 m/uL (4.30-5.90); RDW 13.2 % (11.5-15.5); WBC 7.9 k/uL (3.8-10.6)
[2024-12-17 22:07] LABS: ALT 27 U/L (4-49); AST 21 U/L (17-59); African American GFR (CKD) >90 (>60 ml/min/1.73 sqM); Albumin 4.5 g/dL (3.5-5.0); Alkaline Phosphatase 61 U/L (38-126); Anion Gap 12 mmol/L; Blood Urea Nitrogen 19 mg/dL (9-20); Calcium 9.1 mg/dL (8.4-10.2); Carbon Dioxide 22 mmol/L (22-30); Chloride 104 mmol/L (98-107); Glucose 256 mg/dL (74-99); Magnesium 1.9 mg/dL (1.6-2.3); Non-African American GFR(CKD) 87 (>60 ml/min/1.73 sqM); Potassium 4.1 mmol/L (3.5-5.1); Sodium 138 mmol/L (137-145); Total Bilirubin 0.7 mg/dL (0.2-1.3); Total Protein 7.5 g/dL (6.3-8.2)
[2024-12-17 22:10] LABS: INR 0.9 (<1.2)
[2024-12-17 22:11] LABS: Influenza A Not Detected (Not Detectd); Influenza B Not Detected (Not Detectd); RSV Not Detected (Not Detectd)
[2024-12-17 22:21] LABS: Partial Thromboplastin Time 21.8 sec (22.0-30.0)
[2024-12-18] MEDS ORDERED: ACETAMINOPHEN TAB 325 MG TAB PO PRN (00:16)
[2024-12-18] MEDS ORDERED: ONDANSETRON 4 MG/2 ML VIAL IVP PRN (00:16)
[2024-12-18] MEDS ORDERED: NALOXONE 0.4 MG/ML 1 ML VIAL IV PRN (00:16)
[2024-12-18] MEDS ORDERED: MORPHINE SULFATE 4 MG/ML SYRINGE IV PRN (00:16)
[2024-12-18] MEDS: ASPIRIN 81 MG PO STA (00:31)
[2024-12-18 05:21] LABS: Glucose,Whole Blood 245 mg/dL (70-110)
[2024-12-18] MEDS: SODIUM CHLORIDE 0.9% 1,000 ML IV SCH (08:20)
[2024-12-18] MEDS ORDERED: NON FORMULARY DRUG (Semaglutide [Rybelsus] 7 MG Tablet) PO SCH (09:00)
[2024-12-18 11:07] LABS: NT-Pro-B-Type Natriuretic Pept <20 pg/mL
--- NOTE | 2024-12-18 12:13 | P.CRDCN ---
History of Present Illness History of present illness: HISTORY OF PRESENT ILLNESS: This is a 54-year-old male with a past medical history significant for diet- controlled diabetes and allergies. Patient does not follow with a catcher plug. We have been asked to see the patient in consultation for chest pain. Patient examined at the bedside in the emergency room. Patient states yesterday he took a 2-hour nap and when he woke up he felt somewhat disoriented. He states he had a sharp pain going across to his chest. He had his family take his blood pressure and it was around 160s over 104 which is unusual for him. He states the pain only lasted for about a minute. This morning he reports he is having some discomfort on the right side of his chest. He states the pain is not worse with change in positions or deep inspiration. He is a non-smoker. He denies any alcohol use. He denies any drug use including marijuana. He reports a history of diabetes but states it is controlled with his diet. He denies any family history of premature coronary artery disease. He does give some history that his uncle has heart problems but was unable to elaborate. Additionally, he states he has been under a lot of stress lately. He states his dad is in a care home and he had to go see a neurophysiology tech yesterday as there has been some issues with his trust. DIAGNOSTICS: - EKG reveals sinus mechanism with no signs of acute ischemia. - Chest xray negative for acute process - Laboratory data: WBC 7.9. Hemoglobin 14.7. Platelet count 206. Sodium 138. Potassium 4.1. BUN 19. Creatinine 0.98. Magnesium 1.9. Troponin negative x 1. proBNP less than 20. Troponin 1.910. - Current home cardiac medications include none. - No previous echocardiogram, stress test, or cardiac catheterization available in EMR for review REVIEW OF SYSTEMS: At the time of my exam: CONSTITUTIONAL: Denies fever or chills. HEENT: Denies blurred vision, vision changes, or eye pain. Denies hemoptysis CARDIOVASCULAR: Denies chest pain. Denies orthopnea. Denies PND. Denies palpitations RESPIRATORY: Denies shortness of breath. GASTROINTESTINAL: Denies abdominal pain. Denies nausea or vomiting. HEMATOLOGIC: Denies bleeding disorders. GENITOURINARY: Denies any blood in urine. SKIN: Denies pruitis. Denies rash. PHYSICAL EXAM: VITAL SIGNS: Reviewed. GENERAL: Well-developed in no acute distress. HEENT: Head is normocephalic. Pupils are equal, round. Sclerae anicteric. Mucous membranes of the mouth are moist. Neck supple. No JVD or thyromegaly LUNGS: Respirations even and unlabored. Lungs essentially clear to auscultation bilaterally. HEART: Regular rate and rhythm. S1 and S2 heard. ABDOMEN: Soft. Nondistended. Nontender. EXTREMITIES: Normal range of motion. No clubbing or cyanosis. Peripheral pulses intact. No lower extremity edema NEUROLOGIC: Awake and alert. Oriented x 3. ASSESSMENT: Chest pain, atypical, troponin negative x 1 Diabetes, diet controlled per patient History of seasonal allergies PLAN: An acute coronary event has been ruled out Obtain 2D echo to assess cardiac structure and function Obtain additional troponin Check lipid panel, hemoglobin A1c, proBNP, and TSH Patient to undergo stress echocardiogram today If negative, patient may be discharged home from a cardiac standpoint Nurse practitioner note has been reviewed by physician. Signing provider agrees with the documented findings, assessment, and plan of care documented by ADULT MANAGER as a scribe. Past Medical History Past Medical History: Diabetes Mellitus, Hyperlipidemia Additional Past Medical History / Comment(s): kidney stones, LOOSE STOOLS, GOUT History of Any Multi-Drug Resistant Organisms: None Reported Past Surgical History: Orthopedic Surgery Additional Past Surgical History / Comment(s): lithotripsy, carmen - FOOT SURGERY Past Anesthesia/Blood Transfusion Reactions: No Reported Reaction Past Psychological History: No Psychological Hx Reported Smoking Status: Never smoker Past Alcohol Use History: Occasional Past Drug Use History: None Reported - Past Family History Mother Family Medical History: Cancer Additional Family Medical History / Comment(s): SKIN CANCER Medications and Allergies Home Medications Medication Instructions Recorded Confirmed Type Desloratadine [Clarinex] 5 mg PO HS 12/18/24 12/18/24 History Montelukast [Singulair] 10 mg PO DIRECTED 12/18/24 12/18/24 History Allergies Allergy/AdvReac Type Severity Reaction Status Date / Time propoxyphene napsylate Allergy Nausea & Verified 12/18/24 07:22 [From Darvocet-N] Vomiting & Diarrhea Physical Exam Vitals: Vital Signs Temp Pulse Resp BP Pulse Ox 12/18/24 08:00 59 L 17 135/93 98 12/18/24 05:21 97.9 F 70 15 130/95 96 12/18/24 03:50 65 15 130/83 95 12/18/24 02:13 71 17 142/94 95 12/18/24 00:54 71 18 141/96 95 12/17/24 21:07 97.5 F L 109 H 20 162/109 97 Intake and Output 12/17/24 12/18/24 12/18/24 22:59 06:59 14:59 Other: Weight 89.811 kg Results 12/17/24 21:49 12/17/24 21:49 Cardiac Enzymes 12/17/24 12/17/24 Range/Units 21:49 21:49 AST 21 (17-59) U/L Troponin I <0.012 (0.000-0.034) ng/mL Coagulation 12/17/24 Range/Units 21:49 PT 10.0 (10.0-12.5) sec APTT 21.8 L (22.0-30.0) sec CBC 12/17/24 Range/Units 21:49 WBC 7.9 (3.8-10.6) k/uL RBC 5.22 (4.30-5.90) m/uL Hgb 14.7 (13.0-17.5) gm/dL Hct 42.6 (39.0-53.0) % Plt Count 206 (150-450) k/uL Comprehensive Metabolic Panel 12/17/24 Range/Units 21:49 Sodium 138 (137-145) mmol/L Potassium 4.1 (3.5-5.1) mmol/L Chloride 104 (98-107) mmol/L Carbon Dioxide 22 (22-30) mmol/L BUN 19 (9-20) mg/dL Creatinine 0.98 (0.66-1.25) mg/dL Glucose 256 H (74-99) mg/dL Calcium 9.1 (8.4-10.2) mg/dL AST 21 (17-59) U/L ALT 27 (4-49) U/L Alkaline Phosphatase 61 (38-126) U/L Total Protein 7.5 (6.3-8.2) g/dL Albumin 4.5 (3.5-5.0) g/dL Current Medications Generic Name Dose Route Start Last Admin Trade Name Freq PRN Reason Stop Dose Admin Acetaminophen 650 mg 12/18/24 00:16 Acetaminophen Tab 325 Mg Tab PO Q6HR PRN Mild Pain or Fever > 100.5 Sodium Chloride 1,000 mls @ 999 mls/hr 12/18/24 08:00 12/18/24 08:25 Saline 0.9% IV 999 mls/hr .Q1H1M ACACIA Administration Morphine Sulfate 4 mg 12/18/24 00:16 Morphine Sulfate 4 Mg/Ml Syringe IV Q4HR PRN Severe Pain (Scale 7 to 10) Naloxone HCl 0.2 mg 12/18/24 00:16 Naloxone 0.4 Mg/Ml 1 Ml Vial IV Q2M PRN Opioid Reversal Ondansetron HCl 4 mg 12/18/24 00:16 Ondansetron 4 Mg/2 Ml Vial IVP Q8HR PRN Nausea And Vomiting Intake and Output 12/17/24 12/18/24 12/18/24 22:59 06:59 14:59 Other: Weight 89.811 kg 12/17/24 21:49 12/17/24 21:49
[2024-12-18 13:15] LABS: Glucose,Whole Blood 206 mg/dL (70-110)
[2024-12-18 13:28] VITALS: BP 155/95; PULSE 114; RESP 15; TEMP 97.8
--- NOTE | 2024-12-18 13:28 | CA ---
Stress Echo Report Arsenio Palmer Age: 54 Gender: M : 1970 Exam Date: 12/18/2024 12:41 Exam Location: [facility] Ht (in): 68 Wt (lb): 198 Ordering Physician: Kalie Winter Referring Physician: [id number] Technical Writer And Editor: VENITA FREDERICK Technologist Procedure CPT: Indication: CP ICD-9 Codes: Rhythm: Patient History: CP, DM. Cardiac Medications: Medications in past 24 hours: Contrast: Stress Results Protocol: Julien Total dose(mL): Exercise Duration (min:sec): Max ST Depression (mm): Angina Score: Parker Score: METS: 7.3 Resting HR: 86 Resting BP: 145 / 89 Peak HR: 158 Peak BP: 205 / 64 Max Predicted HR: 164 96 % Max Predicted HR Target HR: 139 Double Product: [id number] Stress Summary: BP Response: Reason for Termination: MAX EXERTION/TARGET HR Cardiac Symptoms: NO SYMPTOMS ECG Analysis Resting ECG: Normal sinus rhythm Stress ECG: No significant ST-T wave changes that are diagnostic for ischemia by specimen analysis Arrhythmia: There were no sustained arrhythmias or ectopic beats noticed during the stress test Echo Analysis Resting Echo: No obvious regional wall motion abnormality at rest. Normal global and segmental systolic function at rest. Peak Echo Analysis: Normal augmentation of global and segmental systolic function with stress. There was no stress-induced regional wall motion abnormality MEASUREMENTS (Male/Female) Normal Values CONCLUSIONS Fair exercise tolerance for age achieving 7.3 METS only Hypertensive at baseline with hypertensive response to exercise Nonischemic ECG response to treadmill exercise Nonischemic echocardiographic response to treadmill exercise Normal clinical response to treadmill exercise Overall low probability for obstructive coronary artery disease. Recommend tight blood pressure control. Dr Holden Mccray (Electronically Signed) Final Date: 18 December 2024 13:27
--- NOTE | 2024-12-18 13:40 | CA ---
Transthoracic Echo Report Name: Arsenio Palmer Age: 54 Gender: M : 1970 Exam Date: 12/18/2024 09:59 Exam Location: [facility] Ht (in): 68 Wt (lb): 198 Ordering Physician: Kalie Winter Attending/Referring Phys: [id number], Maggy Software Test Engineer Felicia Leary, JESSIE Procedure CPT: Indications: LV function, CP Cardiac Hx: Technical Quality: Fair Contrast 1: Total Dose (mL): Contrast 2: Total Dose (mL): MEASUREMENTS (Male / Female) Normal Values 2D ECHO LV Diastolic Diameter PLAX 4.3 cm 4.2 - 5.9 / 3.9 - 5.3 cm LV Systolic Diameter PLAX 2.8 cm IVS Diastolic Thickness 1.2 cm 0.6 - 1.0 / 0.6 - 0.9 cm LVPW Diastolic Thickness 1.4 cm 0.6 - 1.0 / 0.6 - 0.9 cm LV Relative Wall Thickness 0.6 RV Internal Dim ED PLAX 2.6 cm LA Systolic Diameter LX 3.7 cm 3.0 - 4.0 / 2.7 - 3.8 cm LV Diastolic Volume MOD BP 78.8 cm??? 67 - 155 / 56 - 104 cm??? LV Systolic Volume MOD BP 27.2 cm??? - 58 / 19 - 49 cm??? LV Ejection Fraction MOD BP 65.5 % >= 55 % LV Cardiac Index MOD BP 1816.6 cm???/min???m??? LV Diastolic Volume MOD 4C 85.9 cm??? LV Systolic Volume MOD 4C 32.1 cm??? LV Ejection Fraction MOD 4C 62.7 % LV Cardiac Index MOD 4C 1896.8 cm???/min???m??? LV Diastolic Length 4C 8.1 cm LV Systolic Length 4C 6.7 cm LV Diastolic Volume MOD 2C 68.4 cm??? LV Systolic Volume MOD 2C 23.5 cm??? LV Ejection Fraction MOD 2C 65.6 % LV Cardiac Index MOD 2C 1580.3 cm???/min???m??? LV Diastolic Length 2C 7.5 cm LV Systolic Length 2C 6.3 cm LA Volume 51.6 cm??? 18 - 58 / 22 - 52 cm??? LA Volume Index 24.6 cm???/m??? 16 - 28 cm???/m??? M-MODE Aortic Root Diameter MM 3.1 cm LA Systolic Diameter MM 3.4 cm LA Ao Ratio MM 1.1 AV Cusp Separation MM 2.3 cm DOPPLER MV Area PHT 4.5 cm??? Mitral E Point Velocity 83.6 cm/s Mitral A Point Velocity 78.3 cm/s Mitral E to A Ratio 1.1 MV Deceleration Time 168.5 ms TR Peak Velocity 211.7 cm/s TR Peak Gradient 17.9 mmHg FINDINGS Left Ventricle Left ventricular ejection fraction is estimated at 55-60%. Mildly increased septal wall thickness. Normal left ventricular systolic function with no obvious regional wall motion abnormalities. Left ventricular cavity size normal. Right Ventricle Normal right ventricular size and function. Right ventricular systolic pressure within normal limits. Right Atrium Normal right atrial size. Left Atrium Normal left atrial size. Mitral Valve Structurally normal mitral valve. Trace mitral regurgitation. No mitral stenosis. Aortic Valve Trileaflet aortic valve. No aortic stenosis. Trace aortic regurgitation. Tricuspid Valve Structurally normal tricuspid valve. No tricuspid stenosis. Mild tricuspid regurgitation. Pulmonic Valve Structurally normal pulmonic valve. Trace pulmonic regurgitation. No pulmonic stenosis. Pericardium No pericardial or pleural effusion. Aorta Normal size aortic root and proximal ascending aorta. CONCLUSIONS LVEF 55 to 60% Mild concentric LVH No obvious regional wall motion abnormality Normal RV size and systolic function No significant valvular dysfunction Previewed by: Dr Holden Mccray (Electronically Signed) Final Date: 18 December 2024 13:39
--- NOTE | 2024-12-18 15:40 | CT ---
EXAMINATION TYPE: CT angio chest CT DLP: 429.3 mGycm, Automated exposure control for dose reduction was used. DATE OF EXAM: 12/18/2024 3:34 PM COMPARISON: Chest radiograph 12/17/2024 CLINICAL INDICATION:Male, 54 years old with history of high d-dimer; elevated d-dimer TECHNIQUE/CONTRAST: CTA scan of the thorax is performed with IV Contrast, patient injected with 100ml mL of Isovue 370, p ulmonary embolism protocol. MIP images are created and reviewed. FINDINGS: Pulmonary Artery: There is no evidence for a filling defect within the pulmonary vasculature to sugge st acute pulmonary embolism. The pulmonary artery is of normal size. Lungs/Pleura: No evidence of focal consolidation, pleural effusion or pneumothorax. Airway: Large airways are patent. Heart: Heart is within normal limits for size. No pericardial effusion. Vasculature: No evidence of aortic aneurysm. Mediastinum: No evidence of adenopathy. Musculoskeletal: No acute osseous abnormalities. Mild multilevel degenerative disc disease. Soft Tissues: Unremarkable. Lower neck: No significant findings. Upper Abdomen: No significant findings. IMPRESSION: No evidence of pulmonary embolism or acute thoracic process. [facility], , 12/18/2024 3:38 PM
[2024-12-18 16:55] LABS: Chol/HDL Ratio 5.72 Ratio; LDL Cholesterol,Calculated 75.4 mg/dL (0.0-131.0)
== END 2024-12-18 16:30 | disposition home or self-care (01) ==
LOC: EC 19:14 → 6NMEDSUR 12-18 00:18
PROVIDERS: ADMIT Family Medicine; ATTEND Family Medicine
DX: R07.89 Other chest pain (principal); E11.9 Type 2 diabetes mellitus without complications; J30.2 Other seasonal allergic rhinitis; G47.33 Obstructive sleep apnea (adult) (pediatric); E78.5 Hyperlipidemia, unspecified; Z87.442 Personal history of urinary calculi; Z88.5 Allergy status to narcotic agent; Z79.899 Other long term (current) drug therapy
CPT/HCPCS: 96360; 96361; 99285; 36415; 93005; 93306; 93351; 85379; 83880; 80061; 80053; 84443; 83735; 84484 ×2; 85025; 85610; 85730; 83036; 87636; 71046; 71275; G0378; Q9967

== ENCOUNTER 2025-02-19 07:53 | Day surgery (SDC) | payer BC ==
[2025-02-16 15:37] VITALS: BMI 29.2
[~2025-02-19 07:53] MED LIST changes: -DEXAMETHASONE SOD PHOSPHATE 4 MG/ML 1 ML VIAL ONE; +HYDROmorphone 0.5 MG/0.5 ML SYRINGE IVP PRN; +LIDOCAINE 1% (10MG/ML) FOR IV START INTRADERMA PRN; +MIDAZOLAM 2 MG/2 ML VIAL IV PRN; +NALOXONE 0.4 MG/ML 1 ML VIAL IV PRN; -ONDANSETRON 4 MG/2 ML VIAL ONE; +Pre Op ABX Message 1 EACH MISC MISCELLANE ONE; +fentaNYL (PF) 50 MCG/ML 2 ML AMP IVP PRN
[2025-02-19] MEDS: LACTATED RINGERS 1,000 ML IV SCH ×2 (09:03→11:10)
[2025-02-19] MEDS: LACTATED RINGERS 1,000 ML IV ONE (09:03)
[2025-02-19 09:04] LABS: Glucose,Whole Blood 188 mg/dL (70-110)
[2025-02-19] MEDS: DEXAMETHASONE SOD PHOSPHATE 4 MG/ML 1 ML VIAL IV ONE (09:04)
[2025-02-19] MEDS: ONDANSETRON 4 MG/2 ML VIAL IVP ONE (09:05)
[2025-02-19] MEDS ORDERED: PHENYLEPHRINE-0.9% NACL SYG 1,000 MCG/10 ML SYRINGE ONE (10:07)
[2025-02-19] MEDS ORDERED: HYDROmorphone (PF) 1 MG/ML ONE (10:07)
[2025-02-19] MEDS ORDERED: SUCCINYLCHOLINE CHLORIDE 200 MG/10 ML VIAL IV ONE (10:07)
[2025-02-19] MEDS ORDERED: MIDAZOLAM 2 MG/2 ML VIAL ONE (10:07)
[2025-02-19] MEDS ORDERED: GLYCOPYRROLATE 0.2 MG/ML 2 ML VIAL ONE (10:07)
[2025-02-19] MEDS ORDERED: WATER FOR INJECTION, STERILE 10 ML VIAL IV ONE (10:07)
[2025-02-19] MEDS ORDERED: ROCURONIUM 10 MG/ML (5 ML VIAL) IV ONE (10:07)
[2025-02-19] MEDS ORDERED: PROPOFOL 10 MG/ML 20 ML VIAL IV ONE (10:07)
[2025-02-19] MEDS ORDERED: KETAMINE HCL IN 0.9 % NACL 50 MG/5 ML SYRINGE ONE (10:07)
[2025-02-19] MEDS ORDERED: ePHEDrine 50 MG/ML 1 ML VIAL ONE (10:07)
[2025-02-19] MEDS ORDERED: fentaNYL (PF) 50 MCG/ML 2 ML AMP ONE (10:07)
[2025-02-19] MEDS ORDERED: ACETAMINOPHEN IV (For NPO) 1,000 MG/100 ML VIAL ONE (10:07)
[2025-02-19] MEDS ORDERED: NEOSTIGMINE 1 MG/ML 10 ML VIAL ONE (10:07)
[2025-02-19] MEDS ORDERED: LIDOCAINE 1% INJ 10MG/ML (20 ML MDV) ONE (10:07)
[2025-02-19] MEDS: ceFAZolin 2 GM in DEXTROSE 5% IN WATER 50 ML IVPB ONE (10:12)
[2025-02-19] MEDS: BACITRACIN ZINC 500 UNIT/GM OINT 28.4 GM TUBE TOPICAL ONE (10:35)
[2025-02-19] MEDS: LIDOCAINE 1%-EPI 1:100,000 20 ML VIAL SUBMUCOSAL ONE ×2 (10:35)
[2025-02-19] MEDS: OXYMETAZOLINE 0.05% NASL SPRAY 1 SPRAY BOTTLE EA NOSTRIL ONE (10:35)
--- NOTE | 2025-02-19 10:51 | HP ---
HISTORY AND PHYSICAL CHIEF COMPLAINT: Snoring, nasal stuffiness, and difficulty breathing through his nose. HISTORY OF PRESENT ILLNESS: The patient is a 54-year-old male, who was recently seen in my office, complaining of having difficulty breathing through his nose, especially the left side. The patient has undergone a sleep study and has been diagnosed with sleep apnea. It was recommended that he use a CPAP machine. However, he snores quite loudly and states that he is uncomfortable using the CPAP machine. At the time that I saw the patient, I advised that there really is no real cure for snoring, either surgical or medical. He has been advised by the Sleep Study physicians to sleep in certain positions, and this will help reduce his snoring and sleep apnea. He uses the nasal breathing strips at night and that apparently does seem to help. I have advised the patient to never ever use any oifz-yxh-eootmjz nasal spray such as Afrin or Gregorio-Synephrine because this will make his nasal breathing even worse. At the time that he was seen in my office, clinical examination intranasally revealed the patient had a severe septal deviation, mainly to the right with bilateral compensatory hypertrophy of the inferior turbinates. There was hypertrophy of the maxillary crest and a vomerine spur was noted to be posteriorly. The patient was placed on a 3-week course of Nasacort nasal spray two puffs each nostril daily. At the time that the patient was seen on his recheck, he stated that he did not notice any significant improvement in his breathing. At that time, I advised him that he could proceed with a Kedar septoplasty with bilateral partial resection of the inferior turbinates to improve his airway. I also advised the patient that the surgery, even though it will improve his breathing, it may not completely stop his snoring, and he may or may not still have to use a CPAP machine. PAST MEDICAL HISTORY: Reveals that he has an allergy to Darvon. CURRENT MEDICATIONS: Include: 1. Metformin. 2. Trelegy. 3. Singulair. 4. Losartan. REVIEW OF SYSTEMS: Reveals, CARDIOVASCULAR SYSTEM: Possible hypertension. RESPIRATORY: Positive for COPD? The remainder review of systems is noncontributory. PHYSICAL EXAMINATION: GENERAL: This patient is a pleasant 54-year-old male, who was alert and cooperative. HEENT: The patient is normocephalic. Tympanic membranes are normal. Middle ear spaces are free of any fluid or infection. Pupils equal, round, and reactive to light and accommodation. Extraocular movements are within normal limits. Intranasal examination reveals deformities as described above in the history of present illness and will not be repeated here. Examination of the oropharynx, palpation of the neck, cranial nerves 2 through 12, and remainder of the head and neck exam are within normal limits. CHEST/CARDIOVASCULAR: Both lung aburto are clear to percussion and auscultation. The patient is in regular sinus rhythm. S1, S2 are present without any evidence of murmurs, S3s, or S4s. Peripheral pulses are bilaterally symmetrical. ABDOMEN: There is no evidence of any masses, megaly, or tenderness. The abdomen is soft. SKIN: Unremarkable. MUSCULOSKELETAL: All within normal limits. NEUROLOGICAL: All within normal limits. RECTAL: This should be printed. The rectal exam is done on a regular basis at his family physician's office. The remainder of the physical exam is unremarkable. IMPRESSION: Severe nasal septal deviation with severe bilateral hypertrophy of the inferior turbinates. PLAN: The patient is scheduled undergo a Kedar septoplasty with bilateral partial resection of the inferior turbinates under general anesthesia. Attention, RNs in the pre-surgical area: I have ordered for this patient to receive 2 g of Ancef IV to be given once an intravenous line has been established. If the Pharmacy Department sends a different pre-surgical prophylactic antibiotic to the pre- surgical area for this patient, that order should be cancelled, and returned to the Pharmacy Department. Also make sure that the patient's account is credited appropriately. I have also ordered for this patient to receive 1000 mg of Ofirmev IV to be given once an intravenous line has been established. I have discussed the risks, benefits and alternative therapies for the above-mentioned procedure and for both sedation/analgesia as well as necessary blood product administration, if indicated, as they pertain to this patient. The patient has indicated his understanding and acceptance of the risks and procedures discussed. MMODL / IJN: [id number] /
[2025-02-19] MEDS ORDERED: ALPRAZolam 0.5 MG TAB PO PRN (14:00)
[2025-02-19] MEDS ORDERED: HYDROmorphone PCA 10 MG/50 ML BAG IV PRN (15:30)
[2025-02-19] MEDS: ACETAMINOPHEN IV (For NPO) 1,000 MG in EMPTY BAG 1 BAG IVPB SCH (16:41)
[2025-02-19] MEDS: metFORMIN 500 MG TAB PO SCH (17:40)
[2025-02-19 17:54] LABS: Glucose,Whole Blood 191 mg/dL (70-110)
[2025-02-19 20:40] LABS: Glucose,Whole Blood 158 mg/dL (70-110)
[2025-02-19] MEDS: LOSARTAN 25 MG TAB PO SCH (21:25)
[2025-02-19] MEDS ORDERED: TEMAZEPAM 15 MG CAP PO PRN (22:02)
[2025-02-20] MEDS ORDERED: HYDROcodone/APAP 5-325MG 1 EACH TAB PO PRN (02:32)
[2025-02-20 06:04] LABS: Glucose,Whole Blood 116 mg/dL (70-110)
[2025-02-20 07:16] VITALS: RESP 17
[2025-02-20] MEDS: ATORVASTATIN 40 MG TAB PO SCH (07:39)
[2025-02-20] MEDS: LOSARTAN 25 MG TAB PO SCH (07:51)
[2025-02-20 11:13] LABS: Glucose,Whole Blood 130 mg/dL (70-110)
[2025-02-20] MEDS: HYDROmorphone 0.5 MG/0.5 ML SYRINGE IVP ONE (13:00)
[2025-02-20] MEDS: ONDANSETRON 4 MG/2 ML VIAL IVP PRN (13:00)
[2025-02-20 13:30] VITALS: BP 160/95; PULSE 105; TEMP 98.4
--- NOTE | 2025-02-20 22:23 | OP ---
OPERATIVE REPORT DATE OF SERVICE : PREOPERATIVE DIAGNOSIS: Severe nasal septal deviation with severe bilateral hypertrophy of the inferior turbinates. POSTOPERATIVE DIAGNOSIS: Severe nasal septal deviation with severe bilateral hypertrophy of the inferior turbinates. ANESTHESIA: General. PROCEDURE PERFORMED: Kedar septoplasty with bilateral partial resection of the inferior turbinates. COMPLICATIONS: None. ESTIMATED BLOOD LOSS: Less than 30 cc. DESCRIPTION OF PROCEDURE: The patient was placed on the operating table in supine position. After uneventful induction and an endotracheal intubation, satisfactory general anesthesia was obtained. Next, the patient's head was prepped and draped in the usual and customary fashion. Initially, both nares were packed with cottonoid, saturated with Afrin nasal spray and positioned adjacent to the right and left inferior turbinates bilaterally. These cottonoids were left in place for a period of approximately 7-10 minutes to achieve maximum basal constriction of the inferior turbinates. Next, the nasal hairs were trimmed out of both nares using a pair of angled Nikko scissors. Following this, the columellar clamp was attached to the membrane portion of the nasal septum. The cottonoids were subsequently removed. Inspection revealed all of noted deformities that is to say the patient had a C-shaped deformity deflecting the anterior cartilage portion of the septum to the right and almost completely obstructing the right naris. There was hypertrophy of the maxillary crest with a large spur noted on the left side. There was deformity of the perpendicular plate of the ethmoid bone posteriorly. It was noted also that there was a Vomerine spur noted posteriorly on the left side. Both inferior turbinates were severely hypertrophied. Initially, a so-called olga- transfixation incision was made on the right side of the membrane portion of the septum. This was done after injecting the membrane portion of the septum with approximately 2 cc of 1% xylocaine with epinephrine 1:100,000 with an additional cc of solution being injected down to the nasal spine. The incision was carried out using a #15 scalpel, beginning at the dome of the nose and working to the floor of the nose, approximately 4 mm anterior to the caudal aspect of the cartilage portion of the septum and cutting only through mucous membranes. Next, using the a pair of Nikko scissors, the soft tissue was sharply dissected off the anterior caudal portion of the cartilage. The mucoperichondrium was subsequently identified and was incised. Next, using a Woodbury in the usual fashion, the so-called superior anterior tunnel was created by carefully elevating a mucoperichondrial flap off the cartilage beginning working from anterior to posterior in small short strokes. The dissection proceeded without any significant tears in the mucous membranes. This dissection was carried out from superiorly down to and over the spur noted at the maxillary crest. The dissection was carried out from anterior to posterior back to the level of the junction of the cartilage portion of the septum and the bony portion of the septum/perpendicular plate of the ethmoid. Once the bony portion of the septum was reached, the blunt end of the Woodbury was used to raise a mucoperiosteal flap. This was done by using of blunt end of a Woodbury in a sweeping motion from superior to inferior and working back to the level of the vomer. Next, using a Kedar knife, the junction between the bony portion of the septum and cartilage portion of the septum was sharply incised from superior to inferior. This junction was crossed over using the blunt portion of the Woodbury and subsequently the right side of the bony portion of the perpendicular plate of the ethmoid was raised and a mucoperiosteal flap by sweeping from superior to inferior (down to the floor of the nose and working back to the vomer). This completed the superior tunnels of this dissection. Next, attention was directed towards freeing up the maxillary crest. Initially a 4-5 mm inferior strut of the cartilage portion of the septum was sharply incised beginning at the junction of the perpendicular plate of the ethmoid and working anterior towards the nasal spine. Care was taken to leave at least a cm of cartilage for support. This strip of cartilage was subsequently dissected free of the mucoperichondrium and was subsequently discarded. Having completed this, this allowed the septum to swing to the right side nicely. It should be noted that although the incision was made on the right side of the membrane portion of the septum, the actual dissection was carried out on the left side, the side of concavity, of the cartilage portion of the septum. Next, any remaining attachments of the septum were free from the maxillary crest by sharply incising Sharpey's fibers. Next, a so-called left inferior tunnel was created in the usual and customary fashion. The left inferior tunnel and the left superior tunnel was subsequently joined. Having done this, this completely freed the spur on the left side of the maxillary crest. Next, the right inferior tunnel was created by simply inserting a hockey stick posteriorly and working it inferiorly because there was minimal hypertrophy of the maxillary crest on the right side. At this point, the maxillary crest was completely freed and all deformities were able to be observed. Initially, the spur on the left side of the maxillary crest was dealt with by removing it using an osteotome and mallet. Care was taken not to take the maxillary crest down too low. The next step was to remove the central portion of the perpendicular plate of the ethmoid and this was accomplished by using a pair of double-acting bone biting Kerrison in the usual fashion. Next, using an osteotome and mallet, the previously noted Vomerine spur was removed posteriorly and also discarded. Having corrected all of these deformities, this allowed the septum to swing back to the midline quite nicely. The next procedure was to partially resect the inferior turbinates bilaterally. Initially, the right inferior turbinate was clamped with a curved Harriet clamp with a clamp being left in place for a period of approximately 7 minutes. Clamping this portion of the inferior turbinates for 7 minutes allowed the turbinates to be completely crushed. Upon removal after the 7 minutes, the crushed portion of the inferior turbinate delineate the part to be removed. This part was removed using a pair of heavy turbinectomy scissors. Hemostasis was obtained using suction cautery in the usual fashion. Attention was then directed to the left inferior turbinate with the same procedure which was carried out using a curved Harriet clamp. The clamp was applied to the left inferior turbinate, clamped for 7 minutes and then removed. The crushed portion of the inferior turbinate delineate the portion to be removed and it was removed using a pair of heavy angled turbinectomy scissors. Once again, hemostasis was obtained using suction cautery. Inspection now revealed that there was an excellent airway on the right and left side of the nose. All of the pertinent deformities had been corrected or removed. There appeared to be several small tears in the mucous membranes and it was decided not to attempt to close these. These will be left in place to allow for drainage of any blood in the septal area. The olga-transfixation incision was closed using a single running 4-0 chromic suture beginning at the dome of the nose and working down to the floor of the nose. Next, a pair of 8 cm Silastic nasal splints were placed in the right and left nasal chamber respectively. These were positioned along the floor of the nose and was subsequently sewn to the membrane portion of the nasal septum using a straight Dell needle. Next, an 8 cm Merocel nasal tampon was inserted in the right and left naris lateral to the previously inserted Silastic nasal splints. It is to be noted that prior to inserting the splints and the nasal tampons, both nasal chambers were generously dusted with Pieter hemostatic powder. Both the Silastic splints and the Merocel tampons were generously coated with bacitracin ointment. The nasal tampons were tied just below the membrane portion of the septum exteriorly and this would allow for extraction. A mustache dressing was applied and at this point, the procedure was terminated. Estimated blood loss was less than 30 cc. There were no intraoperative complications. The patient tolerated the procedure well and was returned to recovery room in satisfactory condition. It should be noted this procedure started at approximately 10:15 a.m. and ended at approximately 1:45 p.m. for a total operating time of approximately 3-1/2 hours. This is longer than the usual operating time for this procedure which was approximately 45 minutes to 1 hour. The reason for the extended operating time was because of all of the multiple deformities that were encountered and needed to be addressed to achieve acceptable results. The patient will be admitted to the hospital for an overnight stay. KWAKU / DU: [id number] /
== END 2025-02-20 15:56 | disposition home or self-care (01) ==
LOC: OR 07:53 → 4SSUR 13:50 → OR 02-20 15:56
PROVIDERS: ATTEND Otolaryngology
DX: J34.2 Deviated nasal septum (principal); J34.3 Hypertrophy of nasal turbinates; Z99.89 Dependence on other enabling machines and devices
CPT/HCPCS: 94760; 30520; 30130; J1100; J0690 ×3; J2405 ×2; J0131 ×2; J1171

== ENCOUNTER → 2025-03-03 | Outpatient (CLI) | payer BC ==
[2025-03-03 14:52] LABS: HCT 40.4 % (39.6-50.0); HGB 13.5 g/dL (13.0-17.0); MCH 27.4 pg (27.0-32.0); MCHC 33.4 g/dL (32.0-37.0); MCV 82.1 FL (80.0-97.0); Mean Platelet Volume 8.8 FL (9.5-12.2); NRBC Per 100 WBC 0 X 10*3/uL (0.00-0.01); Platelet Count 255 X 10*3/uL (140-440); RBC 4.92 X 10*6/uL (4.40-5.60); RDW 13.2 % (11.5-14.5); WBC 8.31 X 10*3/uL (4.50-10.00)
[2025-03-03 15:31] LABS: BUN/Creat Ratio 15.09 Ratio (12.00-20.00); Blood Urea Nitrogen 16.6 mg/dL (9.0-27.0); Chloride 106 mmol/L (96-109); Chol/HDL Ratio 3.62 Ratio; Glucose 116 mg/dL (70-110); LDL Cholesterol,Calculated 37.1 mg/dL (0.0-131.0); Potassium 4.1 mmol/L (3.5-5.5); Sodium 139 mmol/L (135-145)
[2025-03-03 15:32] LABS: ALT 29 U/L (10-49); AST 22 U/L (14-35); Albumin 4.4 g/dL (3.8-4.9); Albumin/Globulin Ratio 1.63 Ratio (1.60-3.17); Alkaline Phosphatase 80 U/L (41-126); Calcium 8.9 mg/dL (8.7-10.3); Carbon Dioxide 19.1 mmol/L (21.6-31.8); Globulin 2.7 g/dL (1.6-3.3); Total Bilirubin 0.6 mg/dL (0.3-1.2); Total Protein 7.1 g/dL (6.2-8.2)
[2025-03-03 15:52] LABS: NT-Pro-B-Type Natriuretic Pept <36 pg/mL (0-125)
== END | disposition home or self-care (01) ==
LOC: LABWHC1 10:12
PROVIDERS: ATTEND Student in an Organized Health Care Education/Training Program
DX: Z13.6 Encounter for screening for cardiovascular disorders (principal); I50.9 Heart failure, unspecified; E11.9 Type 2 diabetes mellitus without complications; E78.5 Hyperlipidemia, unspecified; D72.9 Disorder of white blood cells, unspecified; R79.89 Other specified abnormal findings of blood chemistry
CPT/HCPCS: 36415; 80053; 80061; 83036; 83880; 84443; 85027; 86140